=== PATIENT | female | born 1940 | race Caucasian/White ===

== ENCOUNTER 2020-11-23 15:30 | Outpatient (CLI) | payer OTHER ==
[2020-11-23] MEDS ORDERED: LIQUID IRON (16:25)
[2020-11-23] MEDS ORDERED: VITAMIN C PO (16:25)
[2020-11-23] MEDS ORDERED: B CO1TAB14 PO (16:25)
[2020-11-23] MEDS ORDERED: ROSU40TA PO (16:25)
[2020-11-23] MEDS ORDERED: ASPI81TA45 PO (16:25)
[2020-11-23] MEDS ORDERED: ESCI10TA97 PO (16:25)
[2020-11-23] MEDS ORDERED: LOSA50TA14 PO (16:25)
[2020-11-23] MEDS ORDERED: TRAZ50TA66 PO (16:25)
[2020-11-23] MEDS ORDERED: METO25TA35 PO (16:25)
== END 2020-11-23 23:59 | disposition home or self-care (01) ==
LOC: STAR 15:30
PROVIDERS: ATTEND Internal Medicine Geriatric Medicine
DX: Z01.818 Encounter for other preprocedural examination (principal); K22.5 Diverticulum of esophagus, acquired; R00.1 Bradycardia, unspecified; I44.0 Atrioventricular block, first degree; R94.31 Abnormal electrocardiogram [ECG] [EKG]; Z20.822 Contact with and (suspected) exposure to COVID-19
CPT/HCPCS: 87635; 93005

== ENCOUNTER 2020-11-28 07:08 | Day surgery (SDC) | payer OTHER ==
[~2020-11-28] VITALS: Ht 160 cm; Wt 61.7 kg
[~2020-11-28 07:08] MED LIST: ASPI81TA45 PO; B CO1TAB14 PO; ESCI10TA97 PO; LIQUID IRON; LOSA50TA14 PO; METO25TA35 PO; ROSU40TA PO; TRAZ50TA66 PO; VITAMIN C PO
[2020-11-28] MEDS ORDERED: CHLORHEXIDINE 15 ML UDC PO ONE (07:30)
[2020-11-28] MEDS ORDERED: LACTATED RINGERS 1,000 ML IV SCH (07:30)
[2020-11-28 07:37] VITALS: BP 173/68
[2020-11-28] MEDS ORDERED: CHLORHEXIDINE 15 ML UDC ONE (07:42)
[2020-11-28] MEDS ORDERED: FENTANYL PF 250 MCG/5ML ONE (08:11)
[2020-11-28] MEDS ORDERED: NEOSTIGMINE 1 MG/ML, 10ML ONE (08:50)
[2020-11-28] MEDS ORDERED: GLYCOPYRROLATE 0.2MG/1ML, 5ML ONE (08:50)
[2020-11-28] MEDS ORDERED: CEFAZOLIN 1,000 MG ONE (08:50)
[2020-11-28] MEDS ORDERED: ONDANSETRON 2MG/ML, 2ML ONE (08:50)
[2020-11-28] MEDS ORDERED: ROCURONIUM 10MG/ML,5ML ONE (08:50)
[2020-11-28] MEDS ORDERED: PROPOFOL 10 MG/ML, 20ML ONE (08:50)
[2020-11-28] MEDS ORDERED: SUCCINYLCHOLINE 20 MG/ML, 10ML ONE (08:50)
[2020-11-28] MEDS ORDERED: HYDROmorphone 1 MG/ML, 1ML INJ IVPush PRN (09:00)
[2020-11-28] MEDS ORDERED: HYDROcodone/APAP 7.5-325MG/15ML UDC PO PRN (09:00)
[2020-11-28] MEDS ORDERED: ONDANSETRON 2MG/ML, 2ML IVPush PRN (09:00)
[2020-11-28] MEDS ORDERED: MEPERIDINE/PF 25MG/0.5ML IVPush PRN (09:00)
[2020-11-28] MEDS ORDERED: METHOCARBAMOL 1,000 MG in DEXTROSE 5% 100 ML IV PRN (09:00)
[2020-11-28] MEDS ORDERED: FENTANYL PF 100 MCG/2ML IV PRN (09:00)
[2020-11-28] MEDS ORDERED: LORazepam 2 MG/ML, 1ML IVPush PRN (09:00)
[2020-11-28] MEDS ORDERED: PROMETHAZINE 25 MG/ML, 1ML IVPush PRN (09:00)
[2020-11-28] MEDS ORDERED: DIPHENHYDRAMINE 50 MG/ML, 1ML IVPush PRN (09:00)
[2020-11-28] MEDS ORDERED: EPHEDRINE 50 MG/ML, 1ML ONE (09:17)
[2020-11-28] MEDS ORDERED: LABETALOL 5MG/ML, 20ML ONE (09:17)
== END 2020-11-28 12:19 | disposition home or self-care (01) ==
LOC: OUT 07:08
PROVIDERS: ATTEND Internal Medicine Geriatric Medicine
DX: K22.5 Diverticulum of esophagus, acquired (principal); K22.2 Esophageal obstruction; I10 Essential (primary) hypertension; E78.5 Hyperlipidemia, unspecified; Z86.73 Personal history of transient ischemic attack (TIA), and cerebral infarction without residual deficits; Z87.891 Personal history of nicotine dependence; Z88.0 Allergy status to penicillin
CPT/HCPCS: 43245; 43248; C1725; C1769; J0330; J0690; J2405; J2704; J2710; J3010; J7120